=== PATIENT | female | born 1985 | race Caucasian/White ===

== ENCOUNTER 2018-10-17 19:28 | Emergency (ER) | payer SELFPAY ==
[~2018-10-17] VITALS: Ht 182.8 cm; Wt 113.4 kg
[2018-10-17] MEDS ORDERED: IBU800 MG PO (20:38)
[2018-10-17] MEDS ORDERED: CYCLOBENZAPRINE5 M3 PO (20:38)
== END 2018-10-17 20:51 | disposition home or self-care (01) ==
LOC: ED 19:28
DX: S39.012A Strain of muscle, fascia and tendon of lower back, initial encounter (principal); M25.551 Pain in right hip; M25.552 Pain in left hip; Z88.8 Allergy status to other drugs, medicaments and biological substances; V47.5XXA Car driver injured in collision with fixed or stationary object in traffic accident, initial encounter; Y93.89 Activity, other specified; Y92.89 Other specified places as the place of occurrence of the external cause; Y99.8 Other external cause status